=== PATIENT | male | born 2000 | race Caucasian/White ===

== ENCOUNTER 2023-08-17 05:00 | Day surgery (SDC) | payer OTHER ==
[~2023-08-17] VITALS: Ht 170.2 cm; Wt 90.7 kg
[2023-08-17 06:29] VITALS: O2SAT 98
[2023-08-17] MEDS ORDERED: CEFAZOLIN SOD 2 GM in D5W 50 ML IV ONE (07:00)
[2023-08-17] MEDS ORDERED: MIDAZOLAM HCL/PF 2 MG/2 ML SYRINGE ONE (07:22)
[2023-08-17] MEDS ORDERED: fentaNYL CITRATE/PF 100 MCG/2 ML AMP ONE (07:22)
[2023-08-17] MEDS ORDERED: ONDANSETRON HCL 4 MG/2 ML VIAL ONE (07:22)
[2023-08-17] MEDS ORDERED: DEXAMETHASONE SOD PHOSPHATE 4 MG/ML VIAL ONE (07:22)
[2023-08-17] MEDS ORDERED: KETOROLAC TROMETHAMINE 30 MG VIAL ONE (07:22)
[2023-08-17] MEDS ORDERED: LIDOCAINE 2%, 20 ML MDV ONE (07:22)
[2023-08-17] MEDS ORDERED: BUPIVACAINE /PF 0.25% 30 ML VIAL INJ ONE (07:22)
[2023-08-17] MEDS ORDERED: EPINEPHRINE HCL/PF 1 MG/ML AMP ONE (07:22)
[2023-08-17] MEDS ORDERED: SEVOFLURANE 15 MIN GAS INH ONE (07:22)
[2023-08-17] MEDS ORDERED: PROPOFOL 200MG/ 20ML VIAL (DIPRIVAN) IV ONE (07:22)
[2023-08-17] MEDS ORDERED: NS 1000 ML IV.SOLN IV ONE ×2 (07:22)
[2023-08-17] MEDS ORDERED: HYDROmorphone 1 MG/ML INJ. CARTRIDGE IVP PRN ×2 (08:15)
[2023-08-17] MEDS ORDERED: MEPERIDINE HCL/PF 25 MG/ML DISP.SYRIN IVP PRN (08:15)
[2023-08-17] MEDS ORDERED: MIDAZOLAM HCL 2 MG/2 ML VIAL (VERSED) IVP PRN (08:15)
[2023-08-17] MEDS ORDERED: LR 1,000 ML IV SCH (08:15)
[2023-08-17] MEDS ORDERED: METOCLOPRAMIDE HCL 10 MG/2 ML VIAL IVP PRN (08:15)
[2023-08-17] MEDS ORDERED: ACETAMINOPHEN I.V. 1000 MG 100 ML IV ONE (08:33)
[2023-08-17 14:34] VITALS: BP_SYST 116; PULSE 69; RESP 16
== END 2023-08-17 13:14 | disposition home or self-care (01) ==
LOC: SMU 05:00 → SDS 05:00
PROVIDERS: ATTEND Orthopaedic Surgery Sports Medicine
DX: S83.511A Sprain of anterior cruciate ligament of right knee, initial encounter (principal); S83.261A Peripheral tear of lateral meniscus, current injury, right knee, initial encounter; Z79.899 Other long term (current) drug therapy; X58.XXXA Exposure to other specified factors, initial encounter; Y93.66 Activity, soccer; Y92.89 Other specified places as the place of occurrence of the external cause; Y99.8 Other external cause status
CPT/HCPCS: 87081; 29888; 64447; 29881; 82962; J3490; J0690; J1100; J0171; J1885; J2001; J3465; J2405; J2704; J3010; J7060; J7030; C1713 ×4; J0131